=== PATIENT | female | born 1970 | race Caucasian/White ===

== ENCOUNTER 2017-01-19 13:57 | Emergency (ER) | payer OTHER | END 2017-01-19 14:52 | disposition home or self-care (01) | LOC: ER 13:57 | DX: S60.221A Contusion of right hand, initial encounter (principal); S60.051A Contusion of right little finger without damage to nail, initial encounter; W22.8XXA Striking against or struck by other objects, initial encounter; Y93.89 Activity, other specified; Y92.89 Other specified places as the place of occurrence of the external cause; Y99.8 Other external cause status ==

== ENCOUNTER 2019-02-13 19:03 | Emergency (ER) | payer OTHER ==
[~2019-02-13] VITALS: Ht 167.6 cm; Wt 63.5 kg
[~2019-02-13 19:03] MED LIST: DOXYCYCLINE 10100 MG PO; MOBIC7.5 MG PO; NORCO 5-325 TA1 EACH PO
[2019-02-13 19:26] VITALS: BP 141/80
[2019-02-13] MEDS ORDERED: AUGMENTIN 875-1 EACH PO (19:40)
== END 2019-02-13 20:22 | disposition home or self-care (01) ==
LOC: ER 19:03
DX: S51.831A Puncture wound without foreign body of right forearm, initial encounter (principal); W55.01XA Bitten by cat, initial encounter; Y92.89 Other specified places as the place of occurrence of the external cause; Y93.89 Activity, other specified; Y99.8 Other external cause status